=== PATIENT | female | born 1965 | race Caucasian/White ===

== ENCOUNTER → 2018-11-09 | Outpatient (CLI) | payer SELFPAY ==
[2018-11-10 15:07] LABS: HPV 16 Negative (Negative); HPV 18 Negative (Negative); HPV OTHER HR TYPES Negative (Negative)
== END | disposition home or self-care (01) ==
LOC: LAB SHORT 12:23 → LAB 12:23
PROVIDERS: Nurse Practitioner Women's Health
DX: Z12.72 Encounter for screening for malignant neoplasm of vagina (principal); Z91.89 Other specified personal risk factors, not elsewhere classified
CPT/HCPCS: 87624; G0123

== ENCOUNTER → 2020-06-18 | Outpatient (CLI) | payer BC ==
[~2020-06-18] MED LIST: ACET120S; CENTRUM SILVER1 EAC2; CLIMARA1 EACH; CODE30 PO; CYCL10; DRIZALMA SPRINK60 MG; Prednisone50 MG PO; TURMERIC 500 M1 EACH; VALA500
== END | disposition home or self-care (01) ==
LOC: PLD 08:48 → LAB SHORT 08:48
DX: D48.5 Neoplasm of uncertain behavior of skin (principal)
CPT/HCPCS: 88304; 88305

== ENCOUNTER → 2020-07-02 | Outpatient (CLI) | payer BC ==
[~2020-07-02] MED LIST changes: -CODE30 PO; -Prednisone50 MG PO
== END | disposition home or self-care (01) ==
LOC: LAB SHORT 08:48
DX: D48.5 Neoplasm of uncertain behavior of skin (principal)
CPT/HCPCS: 88305

== ENCOUNTER 2020-07-30 13:51 | Emergency (ER) | payer BC ==
[~2020-07-30] VITALS: Ht 162.6 cm; Wt 104.3 kg
[2020-07-30 15:28] LABS: BASOPHILS ABSOLUTE AUTO 0.07 K/mm3 (0.00-0.23); BASOPHILS PERCENT AUTO 1 % (0-2); EOSINOPHILS ABSOLUTE AUTO 0.21 K/mm3 (0.00-0.68); EOSINOPHILS PERCENT AUTO 3 % (0-6); Hematocrit 41.6 % (33.0-51.0); Hemoglobin 13.6 g/dL (11.5-16.0); IMMATURE GRAN ABSOLUTE AUTO 0.02 K/mm3 (0.00-0.10); IMMATURE GRAN PERCENT AUTO 0 % (0-1); LYMPHOCYTES ABSOLUTE AUTO 2.57 K/mm3 (0.84-5.20); LYMPHOCYTES PERCENT AUTO 31 % (21-46); MONOCYTES PERCENT AUTO 9 % (4-13); Mean Corpuscular HGB Conc 32.7 g/dL (31.5-36.5); Mean Corpuscular Volume 92 fL (80-100); Mean Platelet Volume 9.5 fL (9.1-12.4); NEUTROPHILS ABSOLUTE AUTO 4.64 K/mm3 (1.96-9.15); NEUTROPHILS PERCENT AUTO 57 % (41-73); Platelet Count 299 K/mm3 (150-400); RDW Coefficient Variation 12.9 % (11.7-14.2); RDW Standard Deviation 43.6 fL (35.1-46.3); Red Blood Cell Count 4.54 M/mm3 (3.80-5.20); White Blood Cell Count 8.21 K/mm3 (4.00-11.30)
[2020-07-30 15:56] LABS: Alanine Aminotransfer (ALT/SGP 71 U/L (12-78); Albumin, Blood 3.7 g/dL (3.4-5.0); Albumin/Globulin Ratio 1.1 (0.8-1.8); Alk Phos 84 U/L (50-136); Anion Gap 6 mmol/L (6-16); Aspartate Aminotrans (AST/SGOT 36 U/L (12-37); Bilirubin, Total 0.5 mg/dL (0.1-1.0); Blood Urea Nitrogen 14 mg/dL (8-24); Bun/Creatinine Ratio 18.7 (12.0-20.0); CO2, Blood 28 mmol/L (21-32); Calcium, Blood 9.1 mg/dL (8.5-10.1); Chloride, Blood 107 mmol/L (98-108); Creatinine, Blood 0.75 mg/dL (0.40-1.00); Globulin, Blood 3.5 g/dL (2.2-4.0); Glomerular Filtration Rate >60 (60-); Glucose, Blood 107 mg/dL (70-99); Potassium, Blood 3.9 mmol/L (3.5-5.5); Sodium, Blood 141 mmol/L (136-145); Total Protein, Blood 7.2 g/dL (6.4-8.2)
[2020-07-30] MEDS ORDERED: CODE30 PO (18:53)
[2020-07-30] MEDS ORDERED: Prednisone50 MG PO (18:53)
== END 2020-07-30 19:10 | disposition home or self-care (01) ==
LOC: ER 13:51
PROVIDERS: Physician Assistant
DX: R22.1 Localized swelling, mass and lump, neck (principal); Z88.2 Allergy status to sulfonamides; Z79.899 Other long term (current) drug therapy; Z87.891 Personal history of nicotine dependence
CPT/HCPCS: 36415; 80053; 85025; 99283; J7512

== ENCOUNTER → 2021-03-03 | Outpatient (CLI) | payer BC ==
[~2021-03-03] MED LIST changes: +CODE30 PO; +Prednisone50 MG PO
== END | disposition home or self-care (01) ==
LOC: LAB SHORT 15:20 → LAB 15:20
DX: L72.9 Follicular cyst of the skin and subcutaneous tissue, unspecified (principal); L90.5 Scar conditions and fibrosis of skin
CPT/HCPCS: 88304; 88305

== ENCOUNTER → 2021-05-13 | Outpatient (CLI) | payer BC | END | disposition home or self-care (01) | LOC: LAB SHORT 11:16 | DX: D22.5 Melanocytic nevi of trunk (principal); B88.0 Other acariasis; B37.2 Candidiasis of skin and nail | CPT/HCPCS: 88305 ==

== ENCOUNTER → 2021-09-11 | Outpatient (CLI) | payer BC | LOC: LAB SHORT 15:00 → LAB 15:00 | DX: R78.81 Bacteremia (principal) | CPT/HCPCS: 87077; 87086; 87186 ==

== ENCOUNTER → 2021-09-13 | Outpatient (CLI) | payer BC ==
[2021-09-13 16:02] LABS: Protein, Urine Quantitative 7.7 mg/dL (0.0-11.9)
== END ==
LOC: LAB 12:23 → LAB SHORT 12:23 → LAB FUT 09-10 17:00 → EDSTATUS 09-10 17:00
PROVIDERS: Internal Medicine Endocrinology, Diabetes & Metabolism; Nurse Practitioner Family
DX: R94.7 Abnormal results of other endocrine function studies (principal); R63.5 Abnormal weight gain
CPT/HCPCS: 81050; 84156

== ENCOUNTER → 2021-10-04 | Outpatient (CLI) | payer BC | LOC: LAB SHORT 10:29 → LAB 10:29 | PROVIDERS: Nurse Practitioner Family | DX: R94.7 Abnormal results of other endocrine function studies (principal); R53.83 Other fatigue; R63.5 Abnormal weight gain | CPT/HCPCS: 81050 ==

== ENCOUNTER → 2021-10-18 | Outpatient (CLI) | payer BC | LOC: LAB 11:38 → LAB SHORT 11:38 | DX: Z48.815 Encounter for surgical aftercare following surgery on the digestive system (principal); Z98.84 Bariatric surgery status | CPT/HCPCS: 87338 ==

== ENCOUNTER → 2021-10-30 | Outpatient (CLI) | payer BC ==
[2021-10-30 12:19] LABS: Source, Urine Clean Catch
[2021-10-30 13:53] LABS: Appearance, Urine Turbid (Clear); Bilirubin, Urine Neg (Neg); Blood, Urine 2+ (Neg); Color, Urine Yellow (P-Yellow); Glucose Qualitative, Urine Neg (Neg); Ketones, Urine Neg (Neg); Leukocyte Esterase, Urine Neg (Neg); Nitrite, Urine Pos (Neg); Protein, Urine Neg (Neg); Specific Gravity, Urine 1.025 (1.003-1.022); Urobilinogen, Urine NORM (Normal)
[2021-10-30 15:05] LABS: Amorphous Heavy (0-Heavy); Bacteria Many /hpf; Calcium Oxalate Crystals Many /hpf; Squamous Epithelial Cells Few /hpf (Few)
== END ==
LOC: LAB SHORT 12:17 → LAB 12:17
PROVIDERS: Nurse Practitioner Family
DX: N39.0 Urinary tract infection, site not specified (principal)
CPT/HCPCS: 81001; 87077; 87086; 87186

== ENCOUNTER → 2022-01-10 | Outpatient (CLI) | payer BC ==
[2022-01-21 18:09] LABS: 5-HIAA, URINE 3.4 mg/L (Undefined)
== END ==
LOC: LAB 14:12 → LAB SHORT 14:12
PROVIDERS: Internal Medicine Endocrinology, Diabetes & Metabolism
DX: R19.7 Diarrhea, unspecified (principal)
CPT/HCPCS: 81050

== ENCOUNTER → 2022-03-12 | Outpatient (CLI) | payer BC ==
[2022-03-12 09:45] LABS: Source, Urine Clean Catch
[2022-03-12 10:34] LABS: Appearance, Urine Cloudy (Clear); Bilirubin, Urine Neg (Neg); Blood, Urine Neg (Neg); Color, Urine Yellow (P-Yellow); Glucose Qualitative, Urine Neg (Neg); Ketones, Urine Neg (Neg); Leukocyte Esterase, Urine Neg (Neg); Nitrite, Urine Neg (Neg); Protein, Urine Neg (Neg); Specific Gravity, Urine 1.025 (1.003-1.022); Urobilinogen, Urine NORM (Normal)
[2022-03-12 10:50] LABS: Amorphous Light (0-Heavy); Bacteria Mod /hpf; Mucus Light (0-Heavy); Red Blood Cells, Urine 0-2 /hpf (0-2); Squamous Epithelial Cells Mod /hpf (Few); White Blood Cells, Urine 0-2 /hpf (0-5)
== END ==
LOC: LAB 09:43 → LAB SHORT 09:43
PROVIDERS: Internal Medicine Nephrology
DX: R31.29 Other microscopic hematuria (principal)
CPT/HCPCS: 81001; 82043

== ENCOUNTER → 2023-03-22 | Outpatient (CLI) | payer BC ==
[2023-03-23 12:00] LABS: Adenovirus F 40/41 Not Detected (NOT DETECT); Astrovirus Not Detected (NOT DETECT); Campylobacter Sp Not Detected (NOT DETECT); Cryptosporidium Not Detected (NOT DETECT); Cyclospora Cayetanensis Not Detected (NOT DETECT); E. Coli O157 Not Detected (NOT DETECT); Entamoeba Histolytica Not Detected (NOT DETECT); Enteroaggregative E. coli-EAEC Not Detected (NOT DETECT); Enteropathogenic E. coli-EPEC Not Detected (NOT DETECT); Enterotoxigenic E. coli-ETEC Not Detected (NOT DETECT); Giardia Lamblia Not Detected (NOT DETECT); Norovirus GI/GII Not Detected (NOT DETECT); Plesiomonas Shigelloides Not Detected (NOT DETECT); Rotavirus A Not Detected (NOT DETECT); Salmonella Sp Not Detected (NOT DETECT); Sapovirus Not Detected (NOT DETECT); Shiga Toxin-prod E. coli-STEC Not Detected (NOT DETECT); Shigella/Enteroin E. coli-EIEC Not Detected (NOT DETECT); Vibrio Cholerae Not Detected (NOT DETECT); Vibrio Sp Not Detected (NOT DETECT); Yersinia Enterocolitica Not Detected (NOT DETECT)
[2023-03-26 05:44] LABS: OVA AND PARASITE,FECAL INTERP Negative (Negative)
== END | disposition home or self-care (01) ==
LOC: LAB SHORT 11:30 → LAB 11:30 → LAB SHORT 03-23 08:35
PROVIDERS: Physician Assistant
DX: R19.7 Diarrhea, unspecified (principal)
CPT/HCPCS: 87177; 87209; 87507

== ENCOUNTER → 2023-06-07 | Outpatient (CLI) | payer BC ==
[2023-06-07 15:03] LABS: Source, Urine Voided
[2023-06-07 17:47] LABS: Bacteria Mod /hpf; Red Blood Cells, Urine 0-2 /hpf (0-2); Squamous Epithelial Cells Few /hpf (Few)
== END ==
LOC: LAB SHORT 15:00 → LAB 15:00
PROVIDERS: Nurse Practitioner Family
DX: N39.0 Urinary tract infection, site not specified (principal)
CPT/HCPCS: 81015; 87077; 87086; 87186

== ENCOUNTER → 2024-01-19 | Outpatient (CLI) | payer BC | LOC: LAB 07:36 → LAB SHORT 07:36 | DX: H02.89 Other specified disorders of eyelid (principal) | CPT/HCPCS: 88305 ==

== ENCOUNTER → 2024-10-11 | Outpatient (CLI) | payer BC | LOC: LAB 15:42 → LAB SHORT 15:42 | DX: R30.0 Dysuria (principal) | CPT/HCPCS: 87077; 87086; 87186 ==